=== PATIENT | female | born 1955 | race Caucasian/White ===

== ENCOUNTER → 2016-10-02 | Outpatient (CLI) | payer OTHER ==
--- NOTE | 2016-10-02 10:39 | RAD ---
Lumbar spine, 3 views, 10/02/2016: History: Disability determination There is a mild left convexity lumbar scoliosis. There are bilateral pedicle screws at L2, L3, L4 and L5 attached to posterior fixation rods. There has been a laminectomy from the L2-3 level down to the L4-5 level. There is moderate disc space narrowing and marginal spurring at multiple levels, most severe at L1-2. No fracture or dislocation is identified. Aortoiliac calcific plaquing is present. IMPRESSION: 1. Posterior spinal fusion and instrumentation from L2 through L5 with an underlying laminectomy. 2. Moderate multilevel degenerative change. 3. Mild lumbar scoliosis.
== END | disposition home or self-care (01) ==
LOC: RAD 10:00
PROVIDERS: ATTEND Neuromusculoskeletal Medicine, Sports Medicine
DX: M51.36 Other intervertebral disc degeneration, lumbar region (principal); M48.06 Spinal stenosis, lumbar region; M41.86 Other forms of scoliosis, lumbar region
CPT/HCPCS: 72100